=== PATIENT | female | born 1965 | race Caucasian/White ===

== ENCOUNTER 2021-06-02 07:36 | Emergency (ER) | payer OTHER ==
[2021-06-02 08:16] LABS: RED BLOOD COUNT 3.8 M/UL (4.00-5.10); WHITE BLOOD COUNT 7.7 K/UL (4.5-11.0)
[2021-06-02 08:45] LABS: BUN/CREATININE RATIO 19 (0-10)
[2021-06-02] MEDS ORDERED: AZITHROMYCIN250 MG PO (11:23)
== END 2021-06-02 11:38 | disposition home or self-care (01) ==
LOC: ER1 07:36
PROVIDERS: Emergency Medicine
DX: M25.532 Pain in left wrist (principal); M25.561 Pain in right knee; M25.562 Pain in left knee; M79.641 Pain in right hand; M79.642 Pain in left hand; R91.8 Other nonspecific abnormal finding of lung field; E87.6 Hypokalemia; Z86.16 Personal history of COVID-19
CPT/HCPCS: 80053; 85025; 85379; 85652; 86140; 99284; J7030; Q9967

== ENCOUNTER → 2021-11-21 | Outpatient (CLI) | payer OTHER ==
[~2021-11-21] MED LIST: AZITHROMYCIN250 MG PO
== END ==
LOC: KOH-I 11:44
DX: M25.561 Pain in right knee (principal)
CPT/HCPCS: 73562